=== PATIENT | male | born 1995 | race Caucasian/White ===

== ENCOUNTER 2016-10-22 11:25 | Emergency (ER) | payer OTHER ==
[2016-10-22 13:13] VITALS: BP 147/97
[2016-10-22] MEDS ORDERED: Ibuprofen TAB* 600 MG PO ONE (13:19)
--- NOTE | 2016-10-22 13:21 | UC ---
Lower Extremity/Ankle HPI - HPI Summary HPI Summary: patient jumped off an 8 foot wall, landing on his left foot, now has heel pain, unable to put pressure on that heel - History of Current Complaint Chief Complaint: UCLowerExtremity Stated Complaint: FOOT INJURY Time Seen by Provider: 10/22/16 13:15 Hx Obtained From: Patient Onset/Duration: Sudden Onset, Lasting Hours Severity Initially: Severe Severity Currently: Severe Aggravating Factor(s): Standing, Ambulation Alleviating Factor(s): Nothing Able to Bear Weight: No - not on his heel - Allergies/Home Medications Allergies/Adverse Reactions: Allergies Allergy/AdvReac Type Severity Reaction Status Date / Time No Known Allergies Allergy Verified 10/22/16 13:13 Home Medications: Home Medications Ibuprofen [Advil] 600 mg PO Q8HR 10/22/16 [History Confirmed 10/22/16] PMH/Surg Hx/FS Hx/Imm Hx Previously Healthy: Yes Respiratory History Of: Reports: Asthma - Childhood - Surgical History Surgical History: None - Family History Known Family History: Positive: Hypertension - Social History Alcohol Use: Weekly Alcohol Amount: 2-3 x weekly Substance Use Type: None Smoking Status (MU): Never Smoked Tobacco Review of Systems Constitutional: Negative Skin: Negative Eyes: Negative ENT: Negative Respiratory: Negative Cardiovascular: Negative Gastrointestinal: Negative Genitourinary: Negative Motor: Negative Musculoskeletal: Arthralgia, Edema, Myalgia Neurological: Negative Psychological: Negative All Other Systems Reviewed And Are Negative: Yes Physical Exam Triage Information Reviewed: Yes Appearance: Well-Appearing, Well-Nourished, Pain Distress Vital Signs: Initial Vital Signs Temp 98.6 F 10/22/16 13:08 Pulse 77 10/22/16 13:08 Resp 18 10/22/16 13:08 BP 147/97 10/22/16 13:08 Pulse Ox 96 10/22/16 13:08 Vital Signs Reviewed: Yes Eye Exam: Normal Eyes: Positive: Conjunctiva Clear ENT Exam: Normal ENT: Positive: Hearing grossly normal, Pharynx normal, TMs normal Dental Exam: Normal Neck exam: Normal Neck: Positive: Supple, No Lymphadenopathy Respiratory Exam: Normal Respiratory: Positive: Chest non-tender, Lungs clear, Normal breath sounds Cardiovascular Exam: Normal Cardiovascular: Positive: RRR, No Murmur, Pulses Normal Abdominal Exam: Normal Abdomen Description: Positive: Nontender, No Organomegaly, Soft Bowel Sounds: Positive: Present Musculoskeletal Exam: Normal Musculoskeletal: Positive: Strength Intact, ROM Intact, No Edema Neurological Exam: Normal Neurological: Positive: Alert, Muscle Tone Normal Psychological Exam: Normal Skin Exam: Normal Lower Extremity Course/Dx - Course Course Of Treatment: hx obtained, exam performed, meds reviewed pain med given, xray obtained neg ofr fracture, - Differential Dx/Diagnosis Differential Diagnosis/HQI/PQRI: Contusion, Dislocation, Fracture (Closed), Sprain, Strain Provider Diagnoses: left heel contusion Discharge - Discharge Plan Condition: Stable Disposition: HOME Patient Education Materials: Foot Contusion (ED) Additional Instructions: 1. rest, elevate ice the heel as much as needed. 2. Ibuprofen for pain. 3. follow up if healing is not progressing
--- NOTE | 2016-10-22 14:12 | RAD ---
INDICATION: Heal injury. TECHNIQUE: 4 views of the left calcaneus were obtained. FINDINGS: The bones are in normal alignment. No fracture is seen. Joint spaces appear maintained. IMPRESSION: NO EVIDENCE FOR FRACTURE.
== END 2016-10-22 14:30 | disposition home or self-care (01) ==
LOC: UCEAST 11:25
DX: S90.32XA Contusion of left foot, initial encounter (principal); Y93.39 Activity, other involving climbing, rappelling and jumping off
CPT/HCPCS: 99213; A9270-GY; G0463